=== PATIENT | female | born 1960 | race Caucasian/White ===

== ENCOUNTER 2020-03-14 22:34 | Emergency (ER) | payer OTHER, SELFPAY ==
--- NOTE | ~2020-03-14 | CT_ITS ---
EXAMINATION: CT brain wo con DATE: 03/15/2020 00:28 INDICATION: Syncope. Head injury. TECHNIQUE: Computed tomography (CT) of the head was performed without intravenous contrast. The mA wa s adjusted according to patient size. Iterative reconstruction technique was employed. The dose-lengt h product was 605.33 mGy-cm. COMPARISON: None FINDINGS: There is no intracranial hemorrhage, acute infarction, or abnormal intracranial mass lesion . The ventricles are normal in size. The orbits are normal. There is mild mucosal thickening in the p aranasal sinuses. The mastoid air cells are normal. IMPRESSION: 1. Normal brain. Reviewed, dictated and finalized at location A. IMPRESSION: 1. Normal brain.
--- NOTE | ~2020-03-14 | XR_ITS ---
EXAMINATION: XR chest 2V 03/14/2020 22:59 INDICATION: Heart palpitations. Shortness of breath. Dizziness. PROCEDURE: 2 view chest COMPARISON: Comparison to multiple prior studies sequentially, with oldest reviewed study dated 03/06. FINDINGS: The lungs are clear. The cardiomediastinal silhouette is within normal limits. There are no pleural effusions. There is no pneumothorax suspected. IMPRESSION: 1: NO ACUTE CARDIOPULMONARY DISEASE. Reviewed, dictated and finalized at location A.
[2020-03-14 22:40] VITALS: BP 152/83; PULSE 74; RESP 20; TEMP 36.7; O2SAT 100
--- NOTE | 2020-03-14 22:43 | ECG_ITS ---
Measurements Intervals [place] Rate: 71 P: 79 FL: 139 QRS: 69 QRSD: 89 T: 75 QT: 383 QTc: 419 Interpretive Statements SINUS RHYTHM BASELINE ARTIFACT- I, II, III, AVR, AVL, AVF, V3, V5 NORMAL ECG Electronically Signed On 03-15-2020 7:14:07 CDT by Josemanuel Gonzales D.O.
[2020-03-14 22:44] VITALS: O2SAT 100
[2020-03-14 22:54] LABS: Basophils Absolute Auto 0.1 K/mm3 (0.0-0.1); Basophils Percent Auto 0.9 % (0.2-1.2); Eosinophils Absolute Auto 0.3 K/mm3 (0-0.3); Eosinophils Percent Auto 3.1 % (0-4.4); Hematocrit 38.7 % (37.0-47.0); Hemoglobin 13.2 g/dL (12.0-15.0); Immature Granulocyte Absolute 0.01 K/mm3 (0.00-0.031); Immature Granulocyte Percent A 0.1 % (0-0.5); Lymphocytes Absolute Auto 4.49 K/mm3 (0.9-3.2); Lymphocytes Percent Auto 51.3 % (18.3-44.2); Mean Corpuscular HGB Conc 34.1 g/dl (32-36); Mean Corpuscular Volume 93.7 fl (80-100); Mean Platelet Volume 10.2 fl (7.4-10.4); Monocytes Absolute Auto 0.7 K/mm3 (0.1-0.6); Monocytes Percent Auto 8.4 % (2.6-8.5); Neutrophils Absolute Auto 3.2 K/mm3 (1.3-6.7); Neutrophils Percent Auto 36.2 % (45.5-73.1); Platelet Count Result 339 k/mm3 (150-375); Red Blood Count 4.13 M/mm3 (4.2-5.4); Red Cell Distribution Width 12.5 % (11.5-14.5); White Blood Count 8.8 K/mm3 (4.5-10.0)
[2020-03-14 23:05] LABS: Blood Urea Nitrogen 11 mg/dL (7-17); Calcium 9.5 mg/dL (8.4-10.2); Carbon Dioxide 24 mmol/L (22-30); Chloride 107 mmol/L (98-107); Estimated Glomerular Filt Rate > 60; Glucose 94 mg/dL (65-105); Potassium 3.9 mmol/L (3.4-5.0); Sodium 138 mmol/L (137-145)
--- NOTE | 2020-03-15 00:13 | ED.SOB ---
HPI - SOB/Dyspnea General Chief Complaint: Shortness of Breath/Dyspnea Stated Complaint: sob,cp,syncope Time Seen by Provider: 03/14/20 22:56 History of Present Illness HPI Narrative: Patient presents with her for increasing shortness of breath. She says she gets an unusual sensation in her chest which is not painful, but a sensation of abrupt firmness. She says her heart rates been going fast, to get short of breath. She just finished a two-week monitoring specialist, in which she had several episodes of sinus tachycardia. Her house mover wants her to see an electro house mover. She is fainted several times this week, and she fainted today and hit the back of her head, with loss of consciousness. MD elicited complaint: shortness of breath and chest pain Pertinent past history: other (Sinus tach and syncope) Onset (ago): hour(s) Timing: intermittent Severity: moderate Known history of: other (Sinus tachycardia) Associated symptoms: syncope Related Data Home Medications Medication Instructions Recorded Confirmed alprazolam 03/14/20 atenolol 03/14/20 budesonide-formoterol [Symbicort] INHALATION 03/14/20 03/14/20 bupropion HCl PO 03/14/20 lorazepam 03/14/20 Allergies Allergy/AdvReac Type Severity Reaction Status Date / Time codeine Allergy Severe SHOCK Verified 03/14/20 22:52 methylprednisolone Allergy Severe SHOCK Verified 03/14/20 22:52 fluticasone Allergy Intermediate Other Verified 03/14/20 22:52 salmeterol Allergy Intermediate Other Verified 03/14/20 22:52 Penicillins Allergy Mild Hives / Verified 03/14/20 22:52 Red Face Review of Systems Review of Systems: Narrative: CONSTITUTIONAL: Denies fever, chills, or sweats. EYES: Denies visual changes, redness, or discharge. ENT: Denies rhinorrhea, congestion, sore throat, or otalgia. CARDIOVASCULAR: Denies edema. RESPIRATORY: Denies cough GASTROINTESTINAL: Denies abdominal pain, nausea, vomiting, or diarrhea. GENITOURINARY: Denies dysuria or hematuria. SKIN: Denies rash or itching. MUSCULOSKELETAL: Denies back pain, joint pain, or myalgia. NEUROLOGIC: Denies headache, numbness, or weakness. PSYCHIATRIC: Denies anxiety or depression. PMFSH Past Medical History Medical History (Updated 03/15/20 @ 01:24 by Debi Velazco MD) Head injury Sinus tachycardia Syncope Exam Narrative: Exam Narrative: GENERAL: Well-appearing, well-nourished, and in no acute distress. Jeanna lady. HEAD: Normocephalic, atraumatic. EYES: PERRLA and EOMI. ENT: Nares clear, no rhinorrhea or epistaxis. Mucous membranes moist. NECK: Supple. CHEST: Clear to auscultation. No respiratory distress. HEART: Regular rate and rhythm. No murmur heard. Normal peripheral pulses. ABDOMEN: Soft, nontender, nondistended, normal active bowel sounds. EXTREMITIES: Normal range of motion. No edema. SKIN: Warm, dry, no rash. NEURO: No focal deficits. Alert and oriented x3. PSYCH: Normal mood and affect. Course Reevaluation(s) Reevaluation #1: Went in to discuss the good test results with the patient and her . Told him that I found no abnormality which would explain the syncope. Her monitoring specialist had been fine. She could follow-up with her house mover and security assistant as planned. Date: 03/15/20 Time: 01:25 Vital Signs Vital signs: Vital Signs Temperature 98.0 F 03/14/20 22:40 Pulse Rate 74 03/14/20 22:40 Respiratory Rate 20 03/14/20 22:40 Blood Pressure 152/83 H 03/14/20 22:40 Pulse Oximetry 100 03/14/20 22:40 Temperature 98.0 F 03/14/20 22:40 Pulse Rate 74 03/14/20 22:40 Respiratory Rate 20 03/14/20 22:40 Blood Pressure 152/83 H 03/14/20 22:40 Pulse Oximetry 100 03/14/20 22:44 MDM - SOB/Dyspnea Differential Diagnosis Differential diagnosis: Likely other (Cardiac arrhythmias) Medical Records Attestation: I reviewed the patient's medical records. Lab Data Attestation: I reviewed the patient's lab results. Result diag
--- NOTE | 2020-03-15 00:26 | PC.NURSE ---
Patient taken to radiology.
[2020-03-15 01:38] VITALS: BP 129/75; PULSE 63; RESP 16; TEMP 36.6; O2SAT 100
== END 2020-03-15 01:41 | disposition home or self-care (01) ==
PROVIDERS: Emergency Provider Emergency Medicine; PCP Nurse Practitioner Family
DX: R00.0 Tachycardia, unspecified (principal); R55 Syncope and collapse; S06.9X9A Unspecified intracranial injury with loss of consciousness of unspecified duration, initial encounter; W18.39XA Other fall on same level, initial encounter
CPT/HCPCS: 36415; 70450; 71046; 80048; 85025; 93005; 99284

== ENCOUNTER 2020-06-04 13:06 | Outpatient (RCR) | payer OTHER, SELFPAY ==
[2020-06-04 14:06] VITALS: PULSE 74
--- NOTE | 2020-06-17 11:12 | PCCPR ---
Addendum entered by Tequila Aguilar RN 06/26/20 12:33: Brittany called today states her brother and will now be living in [facility]. She will not be able to continue. Requested to be dc'd. Original Note: Brittany absent again this week, out of town for family emergency.
== END 2020-06-26 12:36 | disposition home or self-care (01) ==
LOC: ANHCPREHAB 13:06
PROVIDERS: PCP Nurse Practitioner Family
DX: Z95.5 Presence of coronary angioplasty implant and graft (principal)
CPT/HCPCS: 93798

== ENCOUNTER 2020-07-29 01:28 | Outpatient (CLI) | payer OTHER, SELFPAY ==
[2020-07-29 18:16] LABS: SARS-CoV-2 RNA PCR Negative
== END 2020-07-29 01:29 | disposition home or self-care (01) ==
LOC: ANHCOVIDDT 01:28
PROVIDERS: PCP Nurse Practitioner Family; Visit Provider Internal Medicine Gastroenterology
DX: Z01.812 Encounter for preprocedural laboratory examination (principal); Z20.828 Contact with and (suspected) exposure to other viral communicable diseases
CPT/HCPCS: 87635; C9803; U0003

== ENCOUNTER 2020-07-31 01:33 | Day surgery (SDC) | payer OTHER, SELFPAY ==
[2020-07-24 13:04] VITALS: BMI 25.8
[2020-07-31 07:57] VITALS: BP 114/72; PULSE 71; RESP 16; TEMP 36.7; O2SAT 100; BMI 26.7
[2020-07-31] MEDS: LACTATED RINGERS 1,000 ML 150 ML IV CONT (08:15)
--- NOTE | 2020-07-31 08:41 | WPDGICN ---
Assessment and Plan Assessment and plan (1) Chest pain: Code(s): R07.9 - Chest pain, unspecified Status: Acute Assessment and Plan: Patient has chest pain somewhat suspicious for acid reflux. At this is worsened on stopping proton pump inhibitors. Only mild improvement on taking H2 blockers. Plan is for EGD to assess more thoroughly. Further recommendations including possibly restarting PPI eyes will need to be considered. Further recommendations pending after endoscopy. (2) Dyspepsia: Code(s): R10.13 - Epigastric pain Status: Acute (3) ASHD (arteriosclerotic heart disease): Code(s): I25.10 - Atherosclerotic heart disease of [place] coronary artery without angina pectoris Status: Acute Assessment and Plan: Patient is status post stent placement in the heart she is now on Plavix. PPIs have been held but may need to be re- implemented we will determine this after endoscopy. GI Consult Note Consult date/time: 07/31/20 08:41 HPI: Brittany Gill is a 59 year old female Seen in evaluation at the request of Dagmar Mills. patient has chest pain. Patient complains of mid epigastric and mid substernal pain typically after swallowing. She does have burning discomfort that is improved on taking Pepcid however mid substernal chest pain has persisted. Often the pain develops after swallowing but sometimes will developed not related to oral intake. She has tried a GI cocktail that has helped alleviate the pain. Previously she was on Prilosec but this was stopped because of a heart stent implementation of Plavix at the suggestion of the cardiology service. Current medications include Pepcid 20 mg p.o. b.i.d. which fails to completely control her pain although burning has subsided somewhat. She presents today for EGD. Review of Systems Review of Systems: All systems reviewed & are unremarkable except as noted in HPI and below PMFSH Past Medical History Medical History (Updated 07/31/20 @ 08:43 by Jenaro Pastrana MD) Head injury Sinus tachycardia Syncope Family History Family History (Updated 06/04/20 @ 13:29 by Sherry Garcia RN) Father Hypertension Coronary artery disease Diabetes mellitus Melanoma Liver cancer Sibling Hypertension Coronary artery disease Acute myocardial infarction Mother Cerebrovascular accident Grandparent Diabetes mellitus Melanoma Social History Social History Smoking packs per day: 1 Smoking cigarettes per day: 20.0 Years smoked: 20 Smoking pack-years: 20.00 Smoking status: Former smoker Tobacco type: cigarettes Smoking end date: 02/16/20 Alcohol intake: former Drinks per week: 6 Alcohol use details: 6 BEERS PER WEEK, QUIT ALCOHOL FEB, 2020 Substance use: never Substance use type: does not use Living arrangements: with family Spiritual care concerns: No Meds Home Medications and Allergies Home Medications Medication Instructions Recorded Confirmed Type albuterol sulfate 2 puff INHALATION QID PRN 06/04/20 07/24/20 History aspirin 81 mg PO DAILY 06/04/20 07/24/20 History budesonide-formoterol [Symbicort] 2 puff INHALATION Q12H 06/04/20 07/24/20 History cetirizine [Zyrtec] 10 mg PO DAILY PRN 06/04/20 07/24/20 History clopidogrel [Plavix] 75 mg PO DAILY 06/04/20 07/24/20 History famotidine 20 mg PO DAILY 06/04/20 07/24/20 History lorazepam [Ativan] 0.5 mg PO DAILY PRN 06/04/20 07/24/20 History multivit with min-folic acid 1 mg PO DAILY 06/04/20 07/24/20 History [Adult One Daily Multivitamin] amlodipine 10 mg PO DAILY 07/24/20 07/24/20 History atenolol 25 mg PO DAILY 07/24/20 07/24/20 History Allergies Allergy/AdvReac Type Severity Reaction Status Date / Time codeine Allergy Severe SHOCK Verified 07/31/20 07:55 methylprednisolone Allergy Severe SHOCK Verified 07/31/20 07:55 fluticasone Allergy Intermediate Other Verified 07/31/20 07:55 salmeterol Allergy Intermediate Ot
--- NOTE | 2020-07-31 08:50 | WPDANESEPPF ---
Anes - Initial Pre Proc Eval Procedure: Operation Date: 07/31/20 09:00 Proposed Procedures p Esophagogastroduodenoscopy - Jenaro Pastrana MD Date/Time: 07/31/20 08:50 Surgeon: Jenaro Pastrana MD Pre Op Diagnosis: atypical chest pain Patient Data Age: 59 Gender: F Height: 5 ft 4 in Weight: 70.7 kg Last Vital Signs Temp 36.7 C 07/31/20 07:57 Pulse 71 07/31/20 07:57 Resp 16 07/31/20 07:57 BP 114/72 07/31/20 07:57 Pulse Ox 100 07/31/20 07:57 Allergies Allergy/AdvReac Type Severity Reaction Status Date / Time codeine Allergy Severe SHOCK Verified 07/31/20 07:55 methylprednisolone Allergy Severe SHOCK Verified 07/31/20 07:55 fluticasone Allergy Intermediate Other Verified 07/31/20 07:55 salmeterol Allergy Intermediate Other Verified 07/31/20 07:55 Penicillins Allergy Mild Hives / Verified 07/31/20 07:55 Red Face Home Medications Medication Instructions Recorded Confirmed Type albuterol sulfate 2 puff INHALATION QID PRN 06/04/20 07/24/20 History aspirin 81 mg PO DAILY 06/04/20 07/24/20 History budesonide-formoterol [Symbicort] 2 puff INHALATION Q12H 06/04/20 07/24/20 History cetirizine [Zyrtec] 10 mg PO DAILY PRN 06/04/20 07/24/20 History clopidogrel [Plavix] 75 mg PO DAILY 06/04/20 07/24/20 History famotidine 20 mg PO DAILY 06/04/20 07/24/20 History lorazepam [Ativan] 0.5 mg PO DAILY PRN 06/04/20 07/24/20 History multivit with min-folic acid 1 mg PO DAILY 06/04/20 07/24/20 History [Adult One Daily Multivitamin] amlodipine 10 mg PO DAILY 07/24/20 07/24/20 History atenolol 25 mg PO DAILY 07/24/20 07/24/20 History Patient hx anesthesia problems: none Family hx anesthesia problems: none PMFSH Past Medical History Medical History Anxiety CAD (coronary artery disease) COPD (chronic obstructive pulmonary disease) Head injury Hyperlipidemia Hypertension Sinus tachycardia Syncope Family History Family History Father Hypertension Coronary artery disease Diabetes mellitus Melanoma Liver cancer Sibling Hypertension Coronary artery disease Acute myocardial infarction Mother Cerebrovascular accident Grandparent Diabetes mellitus Melanoma Social History Social History Smoking packs per day: 1 Smoking cigarettes per day: 20.0 Years smoked: 20 Smoking pack-years: 20.00 Smoking status: Former smoker Tobacco type: cigarettes Smoking end date: 02/16/20 Alcohol intake: former Drinks per week: 6 Alcohol use details: 6 BEERS PER WEEK, QUIT ALCOHOL FEB, 2020 Substance use: never Substance use type: does not use Living arrangements: with family Spiritual care concerns: No Anes - Eval Final PreProcedure Day of Procedure 07/31/20 08:50 Patient weight: overweight Heart: regular rate and rhythm Lungs: decreased breath sounds Airway: Mallampati scale class 1 Neurological: alert and oriented Last oral intake: >/= 8 hours ASA classification: III Emergent: no Anesthetic plan: proceed Anesthesia type and monitoring: general GIVS and standard monitoring Informed Consent: The patient's anesthetic plan and its attendant risks and benefits were discussed with the patient/family/POA. Questions were solicited and answers provided to the satisfaction of the patient/family/POA.
[2020-07-31] MEDS: BENZOCAINE (*SP) 60 ML SPRAY CAN (HURRICAINE) 1 SPRAY MUCOUS MEM (09:18)
[2020-07-31 09:24] VITALS: BP 107/68; PULSE 76; RESP 20; O2SAT 100
[2020-07-31 09:34] VITALS: BP 107/68; PULSE 72; RESP 20; O2SAT 100
[2020-07-31 09:44] VITALS: BP 125/67; PULSE 67; RESP 20; O2SAT 100
== END 2020-07-31 09:54 | disposition home or self-care (01) ==
PROVIDERS: PCP Nurse Practitioner Family; Visit Provider Internal Medicine Gastroenterology
PROC: 0DJ08ZZ Inspection of Upper Intestinal Tract, Via Natural or Artificial Opening Endoscopic (ICD-10-PCS; CPT 43235; principal; 2020-07-31 09:00)
DX: K29.00 Acute gastritis without bleeding (principal); I25.10 Atherosclerotic heart disease of native coronary artery without angina pectoris; I10 Essential (primary) hypertension; E78.5 Hyperlipidemia, unspecified; J44.9 Chronic obstructive pulmonary disease, unspecified; F41.1 Generalized anxiety disorder; Z87.891 Personal history of nicotine dependence; Z79.82 Long term (current) use of aspirin; Z79.02 Long term (current) use of antithrombotics/antiplatelets
CPT/HCPCS: 43239; 87081; J2704; J7120

== ENCOUNTER 2020-10-17 12:13 | Outpatient (NON) | payer OTHER, SELFPAY ==
[2020-10-17 21:48] LABS: SARS-CoV-2 RNA PCR Negative
== END 2020-10-17 12:14 ==
LOC: ANHCOVIDDT 12:14
PROVIDERS: PCP Nurse Practitioner Family; Visit Provider Nurse Practitioner Adult Health
DX: R05 Cough (principal); Z20.828 Contact with and (suspected) exposure to other viral communicable diseases
CPT/HCPCS: 87635; C9803; U0003

== ENCOUNTER → 2021-03-27 14:30 | Outpatient (CLI) | payer BC, SELFPAY ==
--- NOTE | ~2021-03-27 | MM_ITS ---
EXAMINATION: MM screening trey BI w anastasia HISTORY: Screening mammogram TECHNIQUE: Craniocaudal and mediolateral oblique 3-D tomosynthesis images were obtained and synthetic 2-D images were generated. CAD analysis was submitted and interpreted. COMPARISON: 08/05/2010 bilateral diagnostic digital mammogram BREAST PARENCHYMAL COMPOSITION: There are scattered areas of fibroglandular density. FINDINGS: There is no evidence of suspicious mass, calcification, or architectural distortion to sugg est malignancy in either breast. There has been no suspicious interval change. IMPRESSION: 1. No mammographic evidence of malignancy. 2. Recommend routine screening mammography in one year. BI-RADS Category 1: Negative Reviewed, dictated and finalized at location A.
--- NOTE | ~2021-03-27 | XR_ITS ---
EXAMINATION: XR hip RT min 2V DATE: 03/27/2021 15:05 INDICATION: Right hip pain. TECHNIQUE: 2 views of right hip were obtained. COMPARISON: Right hip radiographs 07/17/2005 FINDINGS: Bone alignment is normal. No fracture. Right hip joint space is normal. IMPRESSION: 1. Normal right hip. Reviewed, dictated and finalized at location A. IMPRESSION: 1. Normal right hip.
== END ==
PROVIDERS: Visit Provider Nurse Practitioner Family
DX: Z12.31 Encounter for screening mammogram for malignant neoplasm of breast (principal); M25.551 Pain in right hip
CPT/HCPCS: 73502; 77063; 77067

== ENCOUNTER → 2021-07-04 16:16 | Outpatient (CLI) | payer BC, SELFPAY ==
--- NOTE | ~2021-07-04 | XR_ITS ---
[id number] DATE: 07/04/2021 19:02 INDICATION: Bilateral rib pain TECHNIQUE: PA chest. 3 views of right ribs and 3 views of left ribs. COMPARISON: 03/14/2020 AP and lateral chest FINDINGS: Normal heart size. No hilar or mediastinal enlargement. There is old pulmonary granulomatou s disease including bilateral calcified hilar nodes. No pulmonary infiltrate or consolidation, pleura l effusion or pulmonary vascular congestion or pneumothorax. There is diffuse osteopenia. No rib fracture or bone destruction is detected. Status post cholecystectomy. IMPRESSION: Osteopenia; no rib fracture or bone destruction detected No active cardiac pulmonary disease Reviewed, dictated and finalized at Location A. Reviewed, dictated and finalized at location A.
== END ==
PROVIDERS: PCP Nurse Practitioner Family; Visit Provider Nurse Practitioner Family
DX: R07.81 Pleurodynia (principal); M85.80 Other specified disorders of bone density and structure, unspecified site
CPT/HCPCS: 71111

== ENCOUNTER → 2021-08-20 02:48 | Outpatient (CLI) | payer BC, SELFPAY ==
[2021-08-20 17:30] LABS: SARS-CoV-2 RNA PCR Negative
== END ==
PROVIDERS: PCP Family Medicine; Visit Provider Family Medicine
DX: R50.9 Fever, unspecified (principal); Z20.822 Contact with and (suspected) exposure to COVID-19
CPT/HCPCS: C9803; U0003; U0005

== ENCOUNTER → 2021-11-25 12:43 | Outpatient (CLI) | payer BC, SELFPAY ==
--- NOTE | ~2021-11-25 | CT_ITS ---
EXAMINATION: CT abdomen pelvis w con DATE: 11/25/2021 13:16 INDICATION: Left upper quadrant abdominal pain TECHNIQUE: Computed tomography (CT) of the abdomen and pelvis was performed with 100 cc Omnipaque 350 intravenous contrast. Automated exposure control and iterative reconstruction technique were employe d. Exam dose: 655.31 mGy-cm total exam DLP. COMPARISON: None. FINDINGS: The lung bases are clear. Normal heart size. No pericardial or pleural effusion. Small sliding hiatal hernia. Status post cholecystectomy. 1 cm hepatic cyst. The liver is otherwise unremarkable. No bile duct or pancreatic duct dilatation. N o pancreatic mass lesion or calcification. There are calcified splenic granulomas. Normal splenic siz e. Normal morphology of the adrenal glands. No renal mass lesion or urinary tract calculus or hydroureteronephrosis. The urinary bladder, uterus and adnexal areas are unremarkable. There is atherosclerotic calcification of the abdominal aorta but no aneurysm. No intraperitoneal or retroperitoneal or pelvic mass lesion or adenopathy or ascites. Normal appendix. No bowel obstruction, bowel wall thickening, pneumatosis or intraperitoneal free air . Small fat-containing umbilical hernia. Included skeletal structures are unremarkable. IMPRESSION: Small sliding hiatal hernia Status post cholecystectomy 1 cm hepatic cysts Reviewed, dictated and finalized at Location A. Reviewed, dictated and finalized at location A. RECONCILIATION SPECIALIST
[2021-11-25 13:10] LABS: Estimated Glomerular Filt Rate > 60
== END ==
PROVIDERS: PCP Nurse Practitioner Family; Visit Provider Nurse Practitioner Family
DX: R10.12 Left upper quadrant pain (principal); K44.9 Diaphragmatic hernia without obstruction or gangrene; Z90.49 Acquired absence of other specified parts of digestive tract; K76.89 Other specified diseases of liver
CPT/HCPCS: 74177; Q9967

== ENCOUNTER 2025-08-28 08:45 | Outpatient (CLI) | payer BC, SELFPAY ==
--- NOTE | ~2025-08-28 | US_ITS ---
EXAMINATION: US abdomen limited DATE: 08/28/2025 09:06 INDICATION: Liver cyst TECHNIQUE: Multiple grayscale and Doppler ultrasound images of the abdomen were obtained. COMPARISON: CT exam from November 2021 FINDINGS: The liver appears slightly increased in echotexture. A 1.5 cm right lobe liver cyst is noted which appears simple. No other lesion or mass seen in the liver. The gallbladder is not seen consistent with removal. Common bile duct: 3 mm Pancreas is incompletely visualized. No free fluid seen. IMPRESSION: Directed exam demonstrating 1.5 cm predominantly simple appearing right lobe liver cyst. Patient is status post cholecystectomy. The pancreas is incompletely visualized. Reviewed, dictated and finalized at location A. CAL EFFECTS LAYOUT PERSON IMPRESSION: Directed exam demonstrating 1.5 cm predominantly simple appearing r ight lobe liver cyst. Patient is status post cholecystectomy. The pancreas is i ncompletely visualized.
== END 2025-08-28 08:46 | disposition home or self-care (01) ==
PROVIDERS: PCP Family Medicine; Visit Provider Family Medicine
DX: K76.89 Other specified diseases of liver (principal)
CPT/HCPCS: 76705